=== PATIENT | male | born 1965 | race African-American/Black ===

== ENCOUNTER 2017-10-15 14:03 | Outpatient (CLI) | payer OTHER ==
--- NOTE | 2017-10-15 15:49 | RAD ---
CERVICAL SPINE 5 VIEWS: D ate: 10/15/17 HISTORY: 52-year-old male with history of cervicalgia, with C3-C7 fusion, with pain between the shoulders and numbness bilaterally in the arms. COMPARISON: 11/19/15. FINDINGS: Anterior cervical fusion changes at C3-C7 with metal plate and screws. No prevertebral soft tissue sw elling. Multilevel facet arthrosis. No abnormal translation between flexion and extension. Stable arsenio earance from prior study. IMPRESSION: Stable anterior cervical fusion changes at C4-C7. No abnormal translation. POS: [facility]
--- NOTE | 2017-10-15 15:57 | CT ---
CT CERVICAL SPINE: 10/15/2017 HISTORY: Cervical spine pain. C3-C7 fusion in 2009. COMPARISON: None. TECHNIQUE: Serial axial CT imaging obtained at 2 mm intervals through the cervical spine without contrast. Sofía nal and sagittal reformatted imaging obtained. FINDINGS: There is an incompletely imaged lesion at the level of the skull base, which involves the right sphen oid sinus and extends into the pterygoid region with osseous expansion and central lucency, possibly with an area of fibrous matrix. This skull base lesion is at least 6.3 x 2.5 cm in greatest dimensio n. Dedicated imaging of the face/sinuses via CT is advised. There is mild degenerative change at the atlantoaxial interspace. The craniocervical and cervicothor acic junction is intact. There is no anterolisthesis or retrolisthesis seen. There is anterior disk ectomy and fusion hardware associated with the C4-C5, C5-C6, and C6-C7 levels. A fibular graft is rose spected at the C5 level. Evaluation for central canal and/or neural foraminal stenosis is limited on routine CT. C2-C3: No osseous cause of significant central canal or neural foraminal stenosis. C3-C4: Mild bilateral uncovertebral osteophyte formation. Mild bilateral neural foraminal stenosis. Mild anterior osteophyte formation. No osseous cause of significant central canal stenosis. C4-C5: There is moderate left neural foraminal stenosis on the basis of uncovertebral osteophyte for mation. No osseous cause of significant central canal or right neural foraminal stenosis. C5-C6: Bilateral uncovertebral osteophyte formation, left greater than right, with associated mild b ilateral neural foraminal stenosis. No significant central canal stenosis. C6-C7: There is osteophyte formation extending from the C6 vertebral body in the left paracentral re gion with mild central canal stenosis. At the C6-C7 intervertebral disk level, there is no osseous c ause of significant central canal stenosis. There is mild neural foraminal stenosis on the basis of bilateral uncovertebral osteophyte formation. C7-T1: There is bilateral facet hypertrophy, right greater than left. There is moderate-severe righ t neural foraminal stenosis and mild to moderate left neural foraminal stenosis. No osseous cause of significant central canal stenosis. T1-T2: There is disk space narrowing and posterior osteophyte formation with at least mild to modera te central canal stenosis. Bilateral facet and uncovertebral osteophyte formation with moderate bila teral neural foraminal stenosis, right greater than left. No CT evidence of hardware failure, acute fracture, or dislocation. Imaged lung apices appear grossly unremarkable. IMPRESSION: 1. Multilevel degenerative change noted within the cervical spine. 2. Incompletely imaged lytic lesion at the skull base, as above. This could represent fibrous dyspl jack. Dedicated CT examination of the face is advised. CODE T POS: [facility]
--- NOTE | 2017-10-15 15:58 | RAD ---
FOUR VIEWS OF THE LUMBAR SPINE: Date: 10-15-17 History: Low back pain, lumbar radiculopathy. FINDINGS: Frontal radiograph demonstrates a mild degree of dextroscoliosis centered at the L3 level. There is m ultilevel disc space narrowing with associated osteophyte formation laterally on the left at L3-4 and on the right at L2-3 and L4-5. Neutral lateral imaging demonstrates no anterolisthesis or retrolisth esis. There is disc space narrowing at L2-3, L3-4, and L4-5. With flexion and extension imaging no an terolisthesis or retrolisthesis is noted. No acute fracture. IMPRESSION: Multilevel degenerative disc disease as above. POS: [facility]
--- NOTE | 2017-10-15 16:16 | MRI ---
MRI OF CERVICAL SPINE WITH AND WITHOUT CONTRAST: Date: 10-15-17 Comparison: None. History: Pain between the shoulders and numbness of both arms, prior cervical spine surgery. Technique: Multiplanar, multisequence MR imaging of the cervical spine is provided with and without c ontrast. FINDINGS: There is anterior discectomy and fusion hardware at C4-5, C5-6, and C6-7. The sagittal STIR imaging d emonstrates mild edematous change on the basis of facet degenerative change on the right at C7-T1. No prevertebral soft tissue abnormality is noted. C2-3: Disc space narrowing and disc desiccation noted. Mild bilateral facet hypertrophy with no signi ficant central canal or neural foraminal stenosis. C3-4: There is disc desiccation and disc space narrowing with mild disc bulge and a small associated central disc protrusion causing partial effacement of the ventral thecal sac and mild central canal s tenosis. There is facet and uncal vertebral osteophyte formation, left greater than right, with moder ate left and mild right neural foraminal stenosis suspected. C4-5: Facet and uncal vertebral osteophyte formation noted on the left with moderate left neural for aminal stenosis. Mild right neural foraminal stenosis on the basis of uncal vertebral osteophyte form ation. No significant central canal stenosis. C5-6: No significant central canal stenosis. Facet and uncal vertebral osteophyte formation noted mamta aterally, left greater than right, with mild right and moderate/severe left neural foraminal stenosis . C6-7: Small left paracentral disc protrusion with no central canal stenosis. Bilateral facet and unca l vertebral osteophyte formation with mild bilateral neural foraminal stenosis. C6-7: Disc space narrowing, disc desiccation and small left paracentral disc protrusion with mild grisel tral canal stenosis. Facet and uncal vertebral osteophyte formation noted, left greater than right, w ith mild to moderate bilateral neural foraminal stenosis. C7-T1: There is disc space narrowing, disc desiccation and mild disc bulge with mild central canal st enosis. There is bilateral facet hypertrophy, left greater than right, with moderate/severe bilateral neural foraminal stenosis. T1-2: There is disc space narrowing, disc desiccation and disc bulge with a right paracentral/right f oraminal disc protrusion causing moderate/severe central canal stenosis, especially to the right of m idline. Facet and uncal vertebral osteophyte formation noted bilaterally, right greater than left, wi th severe right and mild left neural foraminal stenosis. No focal area of abnormal signal intensity i dentified within the cervical cord on the T2 weighted image. The post contrast imaging demonstrates n o abnormal enhancement within the cervical spine. IMPRESSION: Multilevel post-operative and degenerative change within the cervical spine and upper thoracic spine as detailed above. POS: [facility]
--- NOTE | 2017-10-15 16:23 | MRI ---
NONCONTRAST MRI LUMBAR SPINE: Date: 10/15/17 HISTORY: Lumbar radiculopathy. Low back pain. Prior injury in . COMPARISON: None available. FINDINGS: The retroperitoneal structures demonstrate a normal MRI appearance. Conus medullaris is normal in appearance and terminates at the level of the L1 vertebral body. End plate degenerative changes are seen at the L3-4 and L4-5 levels, and to a lesser extent at the L2 -3 level. T10-11 Level: There is a broad based disc osteophyte complex. This narrows the ventral subarachnoid space and does appear to contact the anterior aspect of the distal spinal cord, but normal signal intensity is prese nt in the spinal cord. There is mild bilateral neural foraminal narrowing. T11-12 and T12-L1 Levels: There is no significant disc bulge or disc herniation. Central spinal canal and neural foramina at th le levels are patent. L1-2 Level: There is no disc bulge or disc herniation. The central spinal canal and neural foramina are patent. L2-3 Level: There is loss of intervertebral disc height. There is a broad based disc osteophyte complex. Mild fac et degenerative changes are present. There is moderate to severe narrowing of the central spinal gera l with mild right-sided neural foraminal narrowing. There is minimal left-sided neural foraminal narr owing. L3-4 Level: There is loss of intervertebral disc height. There is a broad based disc osteophyte complex, essentia lly greater on the left, with associated left paracentral disc osteophyte complex. Findings result in severe narrowing of the central spinal canal, some of which is attributable to congenitally short pe dicles. There is mild to moderate right-sided neural foraminal narrowing. There is moderate to severe left-sided neural foraminal narrowing. L4-5 Level: There is loss of intervertebral disc height. There is a broad based disc osteophyte complex and facet hypertrophic changes. Findings result in severe narrowing of the central spinal canal, some of which is related to congenitally short pedicles at this level. There is severe bilateral neural foraminal narrowing. There is also narrowing of the lateral recesses at this level, greater on the right. L5-S1 Level: There is no significant disc bulge or disc herniation. Facet hypertrophic changes are present. Centra l spinal canal is patent. There is mild to moderate bilateral neural foraminal narrowing, primarily r elated to the facet degenerative changes. IMPRESSION: Multilevel disc degenerative changes, greatest at the L2-3, L3-4, and L4-5 levels, with moderate and severe degrees of central canal narrowing, as well as moderate and severe degrees of neural foraminal narrowing on the left at the L3-4 level and bilaterally at the L4-5 level. POS: [facility]
== END 2017-10-15 14:04 | disposition home or self-care (01) ==
LOC: TBSIIMAG 14:03
PROVIDERS: ATTEND Surgery
DX: M51.16 Intervertebral disc disorders with radiculopathy, lumbar region (principal); M47.892 Other spondylosis, cervical region; M48.061 Spinal stenosis, lumbar region without neurogenic claudication; M99.83 Other biomechanical lesions of lumbar region; Z98.1 Arthrodesis status
CPT/HCPCS: 72050; 72120; 72125; 72148; 72156

== ENCOUNTER 2017-12-13 10:09 | Day surgery (SDC) | payer OTHER ==
[2017-12-12 15:22] VITALS: BMI 34.3
[2017-12-13 11:22] LABS: Hemoglobin 16.2 g/dL (14.0-18.0); Mean Corpuscular HGB CONC 34.1 g/dL (32.0-36.0); Mean Corpuscular Hemoglobin 28.9 pg (27.0-31.0); Mean Corpuscular Volume 84.9 fL (78.0-98.0); Mean Platelet Volume 7.4 fL (7.4-10.4); Platelet Count 215 thou/uL (130-400); RBC Distribution Width 13.7 % (11.5-14.5); Red Blood Cell (RBC) Count 5.59 mill/uL (4.70-6.10); White Blood Cell (WBC) Count 10.6 thou/uL (4.8-10.8)
[2017-12-13] MEDS ORDERED: Sodium Chloride 0.9% 10 ML ONE (11:24)
[2017-12-13] MEDS ORDERED: Bacitracin Zinc Ointment 30 gm TUBE ONE (11:25)
[2017-12-13] MEDS ORDERED: Thrombin 5000 UNITS/5 ML VIAL ONE (11:25)
[2017-12-13] MEDS ORDERED: CEFAZOLIN/Water 2 GM/20 ML SYRINGE ONE (11:27)
[2017-12-13 11:39] LABS: Anion Gap 14 mmol/L (10-20); BUN (Urea Nitrogen) 15 mg/dL (8.4-25.7); Calc. Creatinine Clearance 142 mL/min (70-130); Calcium 9.3 mg/dL (7.8-10.44); Carbon Dioxide 28 mmol/L (22-29); Chloride 100 mmol/L (98-107); Estimated GFR-MDRD Greater than 90; Glucose 86 mg/dL (70-105); Potassium 3.5 mmol/L (3.5-5.1); Sodium 138 mmol/L (136-145)
[2017-12-13] MEDS ORDERED: Midazolam HCl 2 mg/2 ml Vial ONE ×2 (11:39→15:14)
[2017-12-13] MEDS ORDERED: Phenylephrine HCL 10 MG/ML VIAL ONE (12:23)
[2017-12-13] MEDS ORDERED: Fentanyl 100 MCG/2 ML VIAL ONE ×4 (12:40→16:00)
[2017-12-13] MEDS ORDERED: PHENYLEPHRINE-NS 100 MCG/ML 10 ML SYRINGE ONE ×2 (13:15→14:39)
[2017-12-13] MEDS ORDERED: Dexamethasone 20 MG/5 ML VIAL ONE ×2 (13:16→14:39)
[2017-12-13 13:32] LABS: PTT 23.7 SEC (22.9-36.1); Prothrombin Time 12.8 SEC (12.0-14.7)
[2017-12-13] MEDS ORDERED: Glycopyrrolate 0.2 MG/ML 5 ML SYRINGE ONE (14:39)
[2017-12-13] MEDS ORDERED: Ondansetron HCl/PF 4 MG/2 ML Vial ONE (14:39)
[2017-12-13] MEDS ORDERED: PROPOFOL 200 MG/20 ML VIAL ONE (14:39)
[2017-12-13] MEDS ORDERED: Lidocaine 1% PF 5 ML VIAL ONE ×2 (14:39)
[2017-12-13] MEDS ORDERED: HYDROmorphone 2 MG/ML VIAL SLOW IVP PRN (14:40)
[2017-12-13] MEDS ORDERED: Morphine Sulfate 2 MG/ML SYRINGE SLOW IVP PRN (14:40)
[2017-12-13] MEDS ORDERED: Ondansetron HCl/PF 4 MG/2 ML Vial IVP PRN (14:40)
[2017-12-13] MEDS ORDERED: Promethazine HCl 25 MG/ML VIAL SLOW IVP PRN (14:40)
[2017-12-13] MEDS ORDERED: Meperidine HCl/PF 25 MG/ML VIAL SLOW IVP PRN (14:40)
[2017-12-13] MEDS ORDERED: Promethazine HCl 25 MG/ML VIAL IM PRN ×2 (14:40→15:13)
[2017-12-13] MEDS ORDERED: Acetaminophen/Codeine 30-300mg Tablet PO PRN (15:13)
[2017-12-13] MEDS ORDERED: Bisacodyl 10 MG SUPP PR PRN (15:13)
[2017-12-13] MEDS ORDERED: Milk Of Magnesia 30 ML UDCUP PO PRN (15:13)
[2017-12-13] MEDS ORDERED: Mag-Al 1200 mg/1200 mg/30 ML UDCUP PO PRN (15:13)
[2017-12-13] MEDS ORDERED: Fleet Enema 133 ML BOT PR PRN (15:13)
[2017-12-13] MEDS ORDERED: Acetaminophen 325 MG TAB PO PRN (15:13)
[2017-12-13] MEDS: Sodium Chloride 0.9% 1,000 ML IV SCH (17:17)
[2017-12-13] MEDS: HYDROcodone/Acetaminophen 7.5/325 mg Tablet PO PRN ×2 (17:51→23:43)
[2017-12-13] MEDS ORDERED: AMITRIPTYLINE HCL 150 MG PO SCH (21:00)
[2017-12-13] MEDS: Gabapentin 400 MG CAP PO SCH (22:31)
[2017-12-13] MEDS: Docusate 100 MG CAP PO SCH (22:31)
[2017-12-13] MEDS: Methocarbamol 500 MG TAB PO SCH (22:31)
[2017-12-13] MEDS: Metoprolol Tartrate 50 MG TAB PO SCH (22:32)
[2017-12-13] MEDS: CEFAZOLIN/Water 2 GM/20 ML SYRINGE SLOW IVP SCH (22:33)
[2017-12-14] MEDS: traMADol HCl 50 MG TAB PO PRN ×2 (01:04→10:35)
[2017-12-14] MEDS: Sodium Chloride 0.9% 1,000 ML IV SCH (02:40)
[2017-12-14] MEDS: CEFAZOLIN/Water 2 GM/20 ML SYRINGE SLOW IVP SCH (05:02)
[2017-12-14] MEDS: HYDROcodone/Acetaminophen 7.5/325 mg Tablet PO PRN ×2 (06:29→10:35)
[2017-12-14] MEDS: Gabapentin 400 MG CAP PO SCH (08:41)
[2017-12-14] MEDS: Docusate 100 MG CAP PO SCH (08:41)
[2017-12-14] MEDS: Metoprolol Tartrate 50 MG TAB PO SCH (08:41)
[2017-12-14] MEDS ORDERED: DULoxetine 60 MG CAP PO SCH (09:00)
[2017-12-14] MEDS ORDERED: Hydrochlorothiazide 25 MG TAB PO SCH (09:00)
[2017-12-14] MEDS: Methocarbamol 500 MG TAB PO SCH (09:06)
--- NOTE | 2017-12-14 11:17 | PRG ---
DATE OF SERVICE: 12/14/2017 Mr. Dillard is postop day 1 from left C8 and left T1 foraminotomies for decompression of the C8 and T1 n erve roots. He has had improvement in his left arm pain. As expected he has incisional pain, but he is doing well. We will plan for dismissal today and in follow up has been arranged.
[2017-12-14 11:55] VITALS: BP 119/77; TEMP 98.2
--- NOTE | 2017-12-17 11:46 | OP ---
DATE OF SURGERY: 12/13/2017 SURGEON: Elvis Booth M.D. SALES ROUTE DRIVER: Johnathan Stephens PA-C. PREPROCEDURE DIAGNOSES: Left C8 and left T1 radiculopathy, prior history of multilevel anterior cerv ical fusion. POSTPROCEDURE DIAGNOSES: Left C8 and left T1 radiculopathy prior history of multilevel anterior cerv ical fusion. PROCEDURE: Left C8 (C7-T1) hemilaminotomy and foraminotomy and left T1 (left T1-T2) hemilaminotomy a nd foraminotomy. DESCRIPTION OF PROCEDURE: After informed consent was obtained from the patient, the patient was brou ght to OR. Proper patient pause and identification was carried out. He was placed in excellent gene ral endotracheal anesthesia, positioned prone on the OR table. Following this, Dorsey taran headh older fixation. All appropriate points were padded. An incision was drawn out in the posterior aspe ct to allow for approach to the left C7-T1 and left T1-T2 segments. This region was sterilely cleans ed, prepared, and draped. Proper patient pause and identification was carried out. The wound was th en opened with a combination of sharp, monopolar, and blunt dissection. Left C7-T1 and left T1-T2 se gments were exposed and localization confirmed our area of interest. We then performed a left C8 and left T1 foraminotomies and hemilaminotomies at the left C7-T1 and left T1-T2 segments with excellent decompression of both left C8 and the left T1 nerve roots. We were satisfied with our decompression . Copious irrigation occurred throughout, as did maximizing hemostasis. The wound was then closed i n anatomic layers following the sprinkling of vancomycin powder. The patient then emerged from anest hesia.
== END 2017-12-14 12:12 | disposition home or self-care (01) ==
LOC: SDC 10:09 → UNDOADMOB 16:22 → SURG A 16:22 → SDC 12-14 12:12 → UNDODISOB 12-14 12:12
PROVIDERS: ATTEND Surgery
PROC: 01N10ZZ Release Cervical Nerve, Open Approach (ICD-10-PCS; principal; 2017-12-14)
PROC: 01N80ZZ Release Thoracic Nerve, Open Approach (ICD-10-PCS; principal; 2017-12-14)
DX: M54.13 Radiculopathy, cervicothoracic region (principal); M48.02 Spinal stenosis, cervical region; Z79.899 Other long term (current) drug therapy; Z88.8 Allergy status to other drugs, medicaments and biological substances; Z98.1 Arthrodesis status
CPT/HCPCS: 36415; 76001; 80048; 85027; 85610; 85730; 93005; 93010; 96374; A4216; J0131; J1100; J2001; J2250; J2270; J2370; J2405; J2704; J3010; J3370; J3490

== ENCOUNTER 2018-05-22 07:34 | Outpatient (CLI) | payer OTHER ==
[2018-05-22 11:38] LABS: Hemoglobin 15.8 g/dL (14.0-18.0); Mean Corpuscular HGB CONC 34.4 g/dL (32.0-36.0); Mean Corpuscular Hemoglobin 28.7 pg (27.0-31.0); Mean Corpuscular Volume 83.5 fL (78.0-98.0); Mean Platelet Volume 8.2 fL (7.4-10.4); Platelet Count 208 thou/uL (130-400); RBC Distribution Width 13.3 % (11.5-14.5); Red Blood Cell (RBC) Count 5.49 mill/uL (4.70-6.10); White Blood Cell (WBC) Count 8.1 thou/uL (4.8-10.8)
[2018-05-22 11:44] LABS: INR-International Normal Ratio 0.9; PTT 26.2 SEC (22.9-36.1); Prothrombin Time 12.5 SEC (12.0-14.7)
[2018-05-22 12:09] LABS: Anion Gap 13 mmol/L (10-20); BUN (Urea Nitrogen) 8 mg/dL (8.4-25.7); Calc. Creatinine Clearance 0 mL/min (70-130); Calcium 9.7 mg/dL (7.8-10.44); Carbon Dioxide 28 mmol/L (22-29); Chloride 102 mmol/L (98-107); Estimated GFR-MDRD Greater than 90; Glucose 88 mg/dL (70-105); Potassium 3.5 mmol/L (3.5-5.1); Sodium 139 mmol/L (136-145)
--- NOTE | 2018-05-24 20:48 | EKG ---
Test Reason : Blood Pressure : / mmHG Vent. Rate : 068 BPM Atrial Rate : 068 BPM P-R Int : 178 ms QRS Dur : 090 ms QT Int : 392 ms P-R-T Axes : 016 006 -34 degrees QTc Int : 416 ms Normal sinus rhythm T wave abnormality, consider inferior ischemia Abnormal ECG When compared with ECG of 13-DEC-2017 10:46, QRS axis Shifted right Inverted T waves have replaced nonspecific T wave abnormality in Inferior leads T wave inversion less evident in Lateral leads Confirmed by Jewell CLAY ([id number]) on 05/24/2018 8:47:49 PM Referred By: FAWAD Confirmed By:Jewell CLAY
== END 2018-05-22 07:35 | disposition home or self-care (01) ==
LOC: LABBT 07:34
PROVIDERS: ATTEND Surgery
DX: Z01.818 Encounter for other preprocedural examination (principal); M48.061 Spinal stenosis, lumbar region without neurogenic claudication; M54.16 Radiculopathy, lumbar region
CPT/HCPCS: 80048; 85027; 85610; 85730; 93005; 93010

== ENCOUNTER 2018-05-28 06:17 | Day surgery (SDC) | payer OTHER ==
[2018-05-22 09:53] VITALS: BMI 35.9
[2018-05-28] MEDS ORDERED: CEFAZOLIN 2 GM/50 ML BAG ONE ×2 (08:18→15:27)
[2018-05-28] MEDS ORDERED: Thrombin 5000 UNITS/5 ML VIAL ONE (10:10)
[2018-05-28] MEDS ORDERED: Sodium Chloride 0.9% 10 ML ONE (10:10)
[2018-05-28] MEDS ORDERED: Bacitracin Zinc Ointment 30 gm TUBE ONE (10:10)
[2018-05-28] MEDS ORDERED: Fentanyl 100 MCG/2 ML VIAL ONE ×5 (10:23→15:28)
[2018-05-28] MEDS ORDERED: PHENYLEPHRINE-NS 100 MCG/ML 10 ML SYRINGE ONE ×2 (12:46→16:00)
[2018-05-28] MEDS ORDERED: Mag-Al 1200 mg/1200 mg/30 ML UDCUP PO PRN (13:51)
[2018-05-28] MEDS ORDERED: Acetaminophen 325 MG TAB PO PRN (13:51)
[2018-05-28] MEDS ORDERED: Promethazine HCl 25 MG/ML VIAL IM PRN ×2 (13:51→13:58)
[2018-05-28] MEDS ORDERED: Zolpidem Tartrate 5 MG TAB PO PRN (13:51)
[2018-05-28] MEDS ORDERED: Bisacodyl 10 MG SUPP PR PRN (13:51)
[2018-05-28] MEDS ORDERED: Milk Of Magnesia 30 ML UDCUP PO PRN (13:51)
[2018-05-28] MEDS ORDERED: Acetaminophen/Codeine 30-300mg Tablet PO PRN (13:51)
[2018-05-28] MEDS ORDERED: traMADol HCl 50 MG TAB PO PRN (13:51)
[2018-05-28] MEDS ORDERED: Ondansetron HCl/PF 4 MG/2 ML Vial IVP PRN (13:58)
[2018-05-28] MEDS ORDERED: Ketorolac Tromethamine 30 MG/ML VIAL IVP PRN (13:58)
[2018-05-28] MEDS ORDERED: Promethazine HCl 25 MG/ML VIAL SLOW IVP PRN (13:58)
[2018-05-28] MEDS ORDERED: CEFAZOLIN/Water 2 GM/20 ML SYRINGE SLOW IVP SCH (14:00)
[2018-05-28] MEDS ORDERED: Ketorolac Tromethamine 30 MG/ML VIAL ONE (14:02)
[2018-05-28] MEDS ORDERED: HYDROcodone/Acetaminophen 7.5/325 mg Tablet ONE (15:27)
[2018-05-28] MEDS: CEFAZOLIN 2 GM/50 ML-DEXTROSE 2 GM in Premix Bag 1 BAG IVPB SCH (15:34)
[2018-05-28] MEDS: HYDROcodone/Acetaminophen 7.5/325 mg Tablet PO PRN ×3 (15:35→23:00)
[2018-05-28] MEDS: Sodium Chloride 0.9% 1,000 ML IV SCH (15:50)
[2018-05-28] MEDS ORDERED: Lidocaine 1% PF 5 ML VIAL ONE (16:00)
[2018-05-28] MEDS ORDERED: Dexamethasone 20 MG/5 ML VIAL ONE (16:00)
[2018-05-28] MEDS ORDERED: Ondansetron PF 4 MG/2 ML Vial ONE (16:00)
[2018-05-28] MEDS ORDERED: Rocuronium Bromide 10 MG/ML (10ML VIAL) ONE (16:00)
[2018-05-28] MEDS ORDERED: Glycopyrrolate 0.2 MG/ML 5 ML SYRINGE ONE (16:00)
[2018-05-28] MEDS ORDERED: PROPOFOL 200 MG/20 ML VIAL ONE (16:00)
[2018-05-28] MEDS: Gabapentin 400 MG CAP PO SCH ×2 (16:10→21:37)
[2018-05-28] MEDS ORDERED: tiZANidine HCl 4 MG TAB ONE (16:27)
[2018-05-28] MEDS: tiZANidine HCl 4 MG TAB PO PRN (16:41)
[2018-05-28] MEDS ORDERED: Morphine 2 MG/ML SYRINGE ONE (16:42)
[2018-05-28] MEDS: Morphine 2 MG/ML SYRINGE SLOW IVP PRN ×3 (16:43→21:36)
--- NOTE | 2018-05-28 20:38 | OP ---
DATE OF PROCEDURE: 05/28/2018 OPERATING ROOM: OR 12. ROLL MECHANIC: Johnathan Stephens PA-C PREPROCEDURE DIAGNOSIS: Multilevel lumbar stenosis with low back and leg pain with lumbar disk extrusions with foraminal and extraforaminal stenosis. POSTPROCEDURE DIAGNOSIS: Multilevel lumbar stenosis with low back and leg pain with lumbar disk extrusions with foraminal and extraforaminal stenosis. PROCEDURES PERFORMED: 1. L2-L3, L3-L4, L4-L5 laminectomies, partial facetectomies, and foraminotomies. 2. Left L3-L4 diskectomy. 3. Left L4-L5 trans-facet approach for lateral diskectomy for decompression of the exiting left L4 nerve root. 4. Use of operative microscope for microdissection. DESCRIPTION OF PROCEDURE: After informed consent was obtained from the patient, the patient was brought to OR 12. Proper patient, pause, and identification were carried out. He was then placed under excellent general endotracheal anesthesia and positioned prone on the OR table. All appropriate points were padded. We identified the L2, L3, L4, and L5 dorsal spines and lamina, and a linear alia was made dorsally over this region. This area was sterilely cleansed, prepared and draped. Proper patient, pause, and identification were carried out. The wound was then opened with a combination of sharp, monopolar, and blunt dissection. The L2, L3, L4, L5 dorsal spines and laminae were exposed. We also exposed the left L4-L5 facet complex for approach in a trans-facet manner. Localization film confirmed area of interest. We then performed L2, L3, L4, and L5 laminectomies, partial facetectomies, and foraminotomies. I then worked over the left L3-L4 segment in standard diskectomy fashion and diskectomy was performed. The operative microscope was used for microdissection. I then followed the and did a left L4-L5 trans-facet approach for decompression of the exiting left L4 nerve root and removal of foraminal disk material. We felt we had excellent decompression of the common dural tube along with all of the nerve roots. Copious irrigation occurred throughout as did maximizing hemostasis. The wound was then copiously irrigated and closed in anatomic layers following sprinkling of vancomycin powder. The patient was then emerged from anesthesia. Job ID: [id number]
[2018-05-28] MEDS: Metoprolol Tartrate 50 MG TAB PO SCH (21:37)
[2018-05-29] MEDS: CEFAZOLIN 2 GM/50 ML-DEXTROSE 2 GM in Premix Bag 1 BAG IVPB SCH (00:19)
[2018-05-29] MEDS: tiZANidine HCl 4 MG TAB PO PRN ×2 (00:20→07:22)
[2018-05-29] MEDS: Sodium Chloride 0.9% 1,000 ML IV SCH (05:31)
[2018-05-29] MEDS ORDERED: Ascorbic Acid 500 mg Chewable Tablet PO SCH (09:00)
[2018-05-29] MEDS ORDERED: Hydrochlorothiazide 25 MG TAB PO SCH (09:00)
--- NOTE | 2018-05-29 10:02 | PRG ---
DATE OF SERVICE: 05/29/2018 SUBJECTIVE: Mr. Dillard is doing well postoperative day #1 from multilevel lumbar decompression diskectomy. His leg pain has resolved. He is moving his lower extremities without deficit. As expected, he has incisional pain. We will plan to mobilize him as he has done overnight and as long as he is voiding on his own, tolerating orals and mobilizing, we will dismiss him. Job ID: [id number]
[2018-05-29] MEDS: Gabapentin 400 MG CAP PO SCH ×2 (10:05→16:00)
[2018-05-29] MEDS: Metoprolol Tartrate 50 MG TAB PO SCH (10:06)
[2018-05-29] MEDS: HYDROcodone/Acetaminophen 7.5/325 mg Tablet PO PRN ×2 (11:29→16:00)
[2018-05-29 15:57] VITALS: BP 127/85; TEMP 97.6
== END 2018-05-29 17:44 | disposition home or self-care (01) ==
LOC: SDC 06:17 → 3SE 17:06 → SDC 05-29 17:44
PROVIDERS: ATTEND Surgery
PROC: 01NB0ZZ Release Lumbar Nerve, Open Approach (ICD-10-PCS; principal; 2018-05-29)
DX: M48.061 Spinal stenosis, lumbar region without neurogenic claudication (principal); M51.26 Other intervertebral disc displacement, lumbar region; Z88.8 Allergy status to other drugs, medicaments and biological substances; Z79.899 Other long term (current) drug therapy
CPT/HCPCS: 76000; J0131; J1100; J1885; J2001; J2270; J2405; J2704; J3010; J3370; J3490